=== PATIENT | female | born 1960 | race Caucasian/White ===

== ENCOUNTER 2024-07-02 13:09 | Emergency (ER) | payer MEDICARE ==
[~2024-07-02] VITALS: Ht 165.1 cm; Wt 68.0 kg
[2024-07-02] MEDS: ketOROlac 15MG/ML VIAL (15MG/ML) IM ONE (14:02)
[2024-07-02] MEDS: HYDROcodone/APAP 5/325 1 TAB TABLET PO ONE (14:02)
[2024-07-02 14:06] VITALS: BP 152/88; PULSE 91; RESP 18; TEMP 98.9; O2SAT 98
[2024-07-02] MEDS ORDERED: HYDR-4060 PO (14:45)
[2024-07-02] MEDS ORDERED: MELO-108 PO (14:45)
--- NOTE | 2024-07-02 14:46 | ERN ---
General Chief Complaint: Wrist Pain/Injury Stated Complaint: FELL, POSSIBLE BROKEN LEFT WRIST History of Present Illness Initial Comments 64-year-old female presents for left wrist injury. Patient was playing pickleball, had a mechanical fall, FOOSH. Has pain of the left wrist. Neurovascularly intact. Closed. No other injuries. Allergies: Coded Allergies: No Known Allergies (Unverified Allergy, Unknown, 07/02/24) Past Medical History Past Medical History: Anxiety, Depression, High Cholesterol Past Surgical History: Other Surgical History Other: BLADDER LIFT ROS Dictation CONSTITUTIONAL: No chills, no fever, no weakness, no diaphoresis, no malaise. HEAD/FACE: No signs of trauma. EENT: No eye pain, no blurred vision, no tearing, no double vision, no ear pain, no ear discharge, no nose pain, no nasal congestion, no throat pain, no throat swelling, no mouth pain. RESPIRATORY: No cough, no orthopnea, no SOB, no stridor, no wheezing. CARDIOVASCULAR: No chest pain, no edema, no palpitations, no syncope. GASTROINTESTINAL/ABDOMINAL: No abdominal pain, no constipation, no diarrhea, no nausea, no vomiting. GENITOURINARY: No abnormal discharge, no dysuria, no frequent urination, no hematuria. No complaints of pain in the genitals. MUSCULOSKELETAL: Left wrist pain INTEGUMENTARY: No change in color, no change in hair/nails, no dryness, no lesion, no lumps, no rash. NEUROLOGICAL/PSYCH: No anxiety, not depressed, no emotional problem, no headache, no numbness, no pre-existing deficit, no history of seizures, no tremors, no weakness. HEMATOLOGIC/LYMPHATIC: Not anemic, no history of blood clots, no apparent bleeding, no bruising, glands not swollen. All Systems Negative, Except as Noted. Physical Exam Physical Exam Dictation VITAL SIGNS: Reviewed. GENERAL APPEARANCE: Alert, oriented x3, no acute distress HEAD AND FACE: Non-traumatic. EYES: PERRL, pink conjunctivas, eyelid no trauma, anterior chamber clear. EARS: Pinnas intact and no signs of trauma or erythema. Ear canals clear and no discharge. TMs no erythema. NOSE: No discharge, no bleeding. OROPHARYNX: Mouth normal, teeth no caries, tongue pink. Pharynx clear, no erythema. Tonsils no exudates, no abscesses noted. Mucous membrane moist. NECK: Supple, non-tender, no thyromegaly, no masses, no JVD, no bruits. BREAST: Deferred. CHEST: No tenderness, no crepitus, no paradoxical movement, no retractions. LUNGS: Clear, well-ventilated, symmetric, no rales, no wheezing, no rhonchi, no stridor, good breath sounds bilaterally. HEART: Regular rate, regular rhythm, no murmur, no gallops. VASCULAR: No peripheral edema. ABDOMEN: Soft, positive bowel sounds, nondistended, no guarding, nontender, no rebound, no masses no hepatomegaly, no splenomegaly, no Faith's sign, no hernias. RECTAL: Deferred. GENITAL: Deferred. NEUROLOGICAL: Normal speech, gross motor function intact, gross sensory function intact. MUSCULOSKELETAL: Neck nontender, full range of motion, back nontender, full range of motion. Left wrist tenderness EXTREMITIES: Nontender, full range of motion. SKIN: Color pink, dry, no turgor, no rash, no lacerations, no abrasions, no contusions. LYMPHATICS: Deferred. MDM CC: Left wrist pain Historian: Patient Comorbidities: None Limitations by social determinants of health: No local care, winter [facility] Differential diagnosis: Soft tissue sprain/strain versus fracture Left wrist x-ray (independently interpreted by me): Distal radius fracture with very minimal displacement Patient has a closed injury. She is neurovascularly intact. No other injuries. Patient received IM Toradol and p.o. Scott in the ER. Placed in the septic stone splint. Neurovascularly intact before and after. We will DC the orthopedic follow up. We will send a prescription for Scott tabs and meloxicam. Patient agrees with the plan. ED Course Orders Procedure Category Date Status Time Ketorolac PHA 07/02/24 Complete Tromethamine 15mg/Ml 14:00 Hydrocodone/Apap PHA 07/02/24 Complete 5/325 (Scott 5/325mg) 14:00 Wrist Comp 3+Vws Lt RAD 07/02/24 Taken 13:53 Current Medications Medications (Trade) Dose Ordered Sig/Darya Route PRN Reason Start Time Stop Time Status Last Admin Dose Admin Acetaminophen/ Hydrocodone Bitart (NORco 5/325MG) 1 tab ONCE ONCE PO 07/02/24 14:00 07/02/24 14:01 DC 2/6/25 14:02 Ketorolac Tromethamine (toRADol) 15 mg ONCE ONCE IM 07/02/24 14:00 07/02/24 14:01 DC 07/02/24 14:02 Vital Signs Date Time Temp Pulse Resp B/P (MAP) Pulse Ox O2 Delivery O2 Flow Rate FiO2 07/02/24 14:06 99.0 91 18 152/88 98 Room Air* 0 21 07/02/24 13:50 99.0 101 18 167/98 100 Room Air 0 DX & DISP Disposition: Discharge Departure Impression: Primary Impression: Wrist fracture, left Condition: Stable Scripts Meloxicam (Meloxicam) 15 Mg Tablet 15 MG PO DAILY PRN for PAIN for 10 Days, #10 TAB Prov: TAWANA LEWIS DO 07/02/24 Hydrocodone/Acetaminophen (Hydrocodon-Acetaminophen 5-325) 5 Mg-325 Mg Tablet 1 TAB PO TIDP PRN for pain for 5 Days, #15 TAB 0 Refills Prov: TAWANA LEWIS DO 07/02/24 Additional Instructions: You have a nondisplaced left wrist fracture. For pain, I have prescribed meloxicam, which is an anti-inflammatory pain medication. You can take this once per day. This medication is in the same family as ibuprofen and naproxen, so please avoid these medications if you use the meloxicam. I have prescribed Scott tabs, which is a combination opiate and Tylenol medication. Use as needed for significant pain. I recommend that you ice the injury frequently. Elevate it as much as possible. You will need to follow up with an orthopedist. I have given you a referral to Dr. Nelson's office. As we discussed, please go to that office from 8:00 a.m. to 12:00 a.m. tomorrow or early next week. Please return to the emergency department if you have any concerns. Referrals: SELF,REFERRAL (PCP) GAGE NELSON MD, RYAN E DO Jul 02, 2024 14:46
--- NOTE | 2024-07-02 14:52 | NUR ---
PLACED LUE SUGAR TONGUE SPLINT AND SLING.GOOD PMS.
--- NOTE | 2024-07-02 15:13 | HMCIMG ---
Wrist 3 views- AP, lateral, oblique right History: fx Comparison: none Findings: Distal radial intra-articular comminuted fracture with dorsal angulation. No other fractures. IMPRESSION: Wrist fracture.
== END 2024-07-02 14:49 | disposition home or self-care (01) ==
LOC: EDH 13:09
DX: S52.572A Other intraarticular fracture of lower end of left radius, initial encounter for closed fracture (principal); E78.00 Pure hypercholesterolemia, unspecified; F32.A Depression, unspecified; F41.9 Anxiety disorder, unspecified; Z98.890 Other specified postprocedural states; W18.39XA Other fall on same level, initial encounter; Y93.89 Activity, other specified; Y92.89 Other specified places as the place of occurrence of the external cause; Y99.8 Other external cause status
CPT/HCPCS: 99283; 73110; 29125; 96372; J1885